=== PATIENT | male | born 1995 | race Two or more races ===

== ENCOUNTER 2025-01-28 19:24 | Emergency (ER) | payer MEDICAID, OTHER ==
[~2025-01-28] VITALS: Ht 177.8 cm; Wt 86.3 kg
[2025-01-28 19:30] VITALS: BP 126/96; PULSE 112; RESP 16; TEMP 99.1; O2SAT 96
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
== END 2025-01-28 20:08 ==
LOC: ER 19:24
DX: R68.89 Other general symptoms and signs (principal); V89.2XXA Person injured in unspecified motor-vehicle accident, traffic, initial encounter; Y93.89 Activity, other specified; Y92.488 Other paved roadways as the place of occurrence of the external cause; Y99.8 Other external cause status